=== PATIENT | male | born 1985 | race Hispanic/Latino ===

== ENCOUNTER 2018-01-12 12:05 | Emergency (ER) | payer SELFPAY ==
[2018-01-12] MEDS ORDERED: KETOROLAC TROMETHAMINE 30MG/ML ONE (13:35)
== END 2018-01-12 13:44 | disposition home or self-care (01) ==
LOC: EDH 12:05
DX: S29.011A Strain of muscle and tendon of front wall of thorax, initial encounter (principal); Z72.0 Tobacco use; X58.XXXA Exposure to other specified factors, initial encounter; Y93.89 Activity, other specified; Y92.89 Other specified places as the place of occurrence of the external cause; Y99.8 Other external cause status
CPT/HCPCS: 71100; 96372; 99284; J1885

== ENCOUNTER 2020-01-12 17:44 | Emergency (ER) | payer OTHER | END 2020-01-12 19:55 | disposition home or self-care (01) | LOC: EDH 17:44 | DX: Z00.00 Encounter for general adult medical examination without abnormal findings (principal); Z72.0 Tobacco use | CPT/HCPCS: 99281 ==